=== PATIENT | female | born 1945 | race Caucasian/White ===

== ENCOUNTER → 2017-09-13 | Outpatient (CLI) | payer MEDICARE ==
--- NOTE | 2017-09-13 10:25 | PCVCIMAG ---
EXAM: BILATERAL CAROTID DUPLEX INDICATION: Carotid Occlusive Disease. FINDINGS: Doppler Measurements (centimeters per second): RIGHT: Peak CCA-55, Peak ECA-52, Diastolic ICA-21, Peak ICA-68, ICA/CCA Ratio-1.2. LEFT: Peak CCA-74, Peak ECA-73, Diastolic ICA-22, Peak ICA-82, ICA/CCA Ratio-1.1. RIGHT CAROTID: The carotid bulb has minimal plaque. The proximal internal carotid artery shows no significant stenosis. The common carotid artery shows no significant stenosis. The external carotid artery shows no significant stenosis. LEFT CAROTID: The carotid bulb has mild plaque. The proximal internal carotid artery shows <40% stenosis. The common carotid artery shows no significant stenosis. The external carotid artery shows no significant stenosis. Antegrade flow in both vertebral arteries. IMPRESSION: No significant stenosis of the right internal carotid artery with minimal plaque. <40% stenosis of the left internal carotid artery with mild plaque. LOC:[place] [id number]
--- NOTE | 2017-09-15 08:18 | PCVCIMAG ---
APPROVED REPORT Study performed: 09/13/2017 10:05:53 EXAM: Comprehensive 2D, Doppler, and color-flow Echocardiogram Patient Location: Echo lab Status: routine BSA: 1.65 HR: 58 bpmBP: 150/86 mmHg Rhythm: Bradycardia Other Information Study Quality: Adequate Risk Factors: Cardiac Risk Factors: HTN Indications Abnormal ECG Palpitations Chest Pain 2D Dimensions LVEF(%): 48.75 (>50%) IVSd: 13.91 (7-11mm) LVDd: 38.45 mm PWd: 11.22 (7-11mm) LVDs: 29.17 (25-40mm) Left Atrium: 35.67 (27-40mm) Aortic Root: 28.33 mm LV Single Plane 4CH: 54.83 % LV Single Plane 2CH: 62.60 %Hayden's LVEF: 58.72 % Biplane EF: 59.4 % Volumes Left Atrial Volume (Systole) Single Plane 4CH: 42.21 mLSingle Plane 2CH: 45.96 mL LA ESV Index: 28.00 mL/m2 Aortic Valve AoV Peak Riley.: 1.20 m/s AO Peak Gr.: 5.72 mmHgLVOT Max P.50 mmHg LVOT Max V: 0.93 m/s Mitral Valve E/A Ratio: 0.7 MV Decel. Time: 282.02 ms MV E Max Riley.: 0.73 m/s MV A Riley.: 1.07 m/s IVRT: 107.27 ms Pulmonary Valve PV Peak Riley.: 0.62 m/sPV Peak Gr.: 1.55 mmHg Pulmonary Vein P Vein S: 0.41 m/sP Vein A: 0.35 m/s P Vein D: 0.54 m/sP Vein A Dur.: 141.9 msec P Vein S/D Ratio: 0.76 Tricuspid Valve TR Peak Riley.: 2.34 m/s TR Peak Gr.: 21.93 mmHg TV Vmax: 2.35 m/s Left Ventricle The left ventricle is normal size. There is normal LV segmental wall motion. Mild concentric left ventricular hypertrophy. Left ventricular systolic function is normal. The left ventricular ejection fraction is within the normal range. LVEF is 60-65%. Grade I - abnormal relaxation pattern. Right Ventricle The right ventricle is normal size. The right ventricular systolic function is normal. Atria The left atrium size is normal. The right atrium size is normal. Aortic Valve The aortic valve is normal in structure. No aortic regurgitation is present. There is no aortic valvular stenosis. Mitral Valve The mitral valve is normal in structure. Mild mitral regurgitation. No evidence of mitral valve stenosis. Tricuspid Valve The tricuspid valve is normal in structure. Trace tricuspid regurgitation with PAP of 30 mmHg. Pulmonic Valve The pulmonary valve is normal in structure. There is no pulmonic valvular regurgitation. Great Vessels The aortic root is normal in size. IVC is normal in size and collapses with >50% inspiration Pericardium There is no pericardial effusion. <Conclusion> Left ventricular systolic function is normal. There is normal LV segmental wall motion. LVEF is 60-65%. Grade I diastolic dysfunction The aortic valve is normal in structure. No aortic regurgitation or stenosis The mitral valve is normal in structure. Mild mitral regurgitation. Pulmonary artery pressure of approximately 30mmHg There is no pericardial effusion.
--- NOTE | 2017-09-15 12:21 | PCVCIMAG ---
APPROVED REPORT Patient Location: Echo lab Room #: Stress Nurse: Jamila Montano RN Treadmill Stress Test PCP- Martell Freire DO The patient exercised according to the Jey Protocol for 8:05 minutes, achieving a maximum work level of 10.1 METS. The resting heart rate of 59 bpm, bhupendra to a maximal level of 113 bpm. This value represents 76% of the maximal, age-predicted heart rate. The resting blood pressure of 140/88 mmHg, bhupendra to a maximum blood pressure of 182/62 mmHg. The exercise was stopped due to dyspnea, fatigue. Conclusion 1. Submaximal treadmill stress test, non-diagnostic for ischemia in light of the low heart rate achieved. 2. No subjective signs of ischemia. No diagnostic ischemic electrocardiographic changes. 3. Study associated with good exercise capacity (10.1 METS) Consider pharmacologic stress testing given submaximal nature of study.
== END | disposition home or self-care (01) ==
LOC: PCVCIMAG 09:04
PROVIDERS: ATTEND Internal Medicine
DX: I65.22 Occlusion and stenosis of left carotid artery (principal); I34.0 Nonrheumatic mitral (valve) insufficiency; R07.9 Chest pain, unspecified; I10 Essential (primary) hypertension; R94.31 Abnormal electrocardiogram [ECG] [EKG]; R00.2 Palpitations
CPT/HCPCS: 93017; 93306; 93880

== ENCOUNTER → 2017-12-12 | Outpatient (CLI) | payer MEDICARE ==
[~2017-12-12] MED LIST: REGADENOSON 0.4 MG/5 ML DISP.SYRIN. IV
== END | disposition home or self-care (01) ==
LOC: PCVCIMAG 09:14
DX: R07.2 Precordial pain (principal); I10 Essential (primary) hypertension; R94.31 Abnormal electrocardiogram [ECG] [EKG]; R00.2 Palpitations; E78.5 Hyperlipidemia, unspecified; K21.9 Gastro-esophageal reflux disease without esophagitis; K44.9 Diaphragmatic hernia without obstruction or gangrene; Z79.82 Long term (current) use of aspirin; Z79.899 Other long term (current) drug therapy
CPT/HCPCS: 78452; 93005; 93017; A9500; G0463; J2785

== ENCOUNTER → 2018-09-04 | Outpatient (CLI) | payer MEDICARE | END | disposition home or self-care (01) | LOC: PCVCCLINIC 16:13 | PROVIDERS: ATTEND Internal Medicine | DX: I10 Essential (primary) hypertension (principal); R94.31 Abnormal electrocardiogram [ECG] [EKG]; R06.09 Other forms of dyspnea; R00.2 Palpitations; E78.5 Hyperlipidemia, unspecified; K21.9 Gastro-esophageal reflux disease without esophagitis; K44.9 Diaphragmatic hernia without obstruction or gangrene; Z88.8 Allergy status to other drugs, medicaments and biological substances; Z79.82 Long term (current) use of aspirin | CPT/HCPCS: 36415; 80061; 93005; G0463 ==

== ENCOUNTER → 2019-03-05 | Outpatient (CLI) | payer MEDICARE | END | disposition home or self-care (01) | LOC: PCVCCLINIC 11:20 | PROVIDERS: ATTEND Internal Medicine | DX: I10 Essential (primary) hypertension (principal); R00.2 Palpitations; R06.02 Shortness of breath; E78.5 Hyperlipidemia, unspecified; K21.9 Gastro-esophageal reflux disease without esophagitis; K44.9 Diaphragmatic hernia without obstruction or gangrene; M81.0 Age-related osteoporosis without current pathological fracture; Z79.899 Other long term (current) drug therapy; Z88.8 Allergy status to other drugs, medicaments and biological substances; Z79.82 Long term (current) use of aspirin | CPT/HCPCS: 36415; 80061; 93005; G0463 ==